=== PATIENT | female | born 1950 | race Caucasian/White ===

== ENCOUNTER → 2020-03-16 | Outpatient (CLI) | payer OTHER ==
--- NOTE | 2020-03-17 18:57 | MAM ---
EXAM DESCRIPTION: 3D Diagnostic, Bilateral (accession [id number]), Breast,Left (accession [id number]): Ultrasound CLINICAL HISTORY: 69 yearsFemale[age] BREAST MASS .. Knot/lump anterior and medial left breast No family history breast cancer. Menarche age 18. Childbirth age 22. Menopause age 52. Bilateral breast implants "about 40 years". No HRT. Lifetime risk of developing breast cancer (Tyrer-Cuzick model)(%): 4.8. COMPARISON: Baseline study at this facility. TECHNIQUE: Bilateral LM, CC, and MLO projection full-field images, Mikel implant displacement positioning, digital tomosynthesis technique. Bilateral 2-D digital full-field images: With Mikel implant displacement. Bilateral full-field CC and MLO projection images without displacement. CAD available for 2-D images.. Transcutaneous scanning of the left breast utilizing soto-scale and Doppler modes. Scanning performed by the certified nurse practitioner ; observation by Dr. Javed. FINDINGS: The breast parenchymal density pattern is: Heterogeneously dense breast tissue, which may obscure small masses. No skin thickening or nipple retraction bilateral breast implants retroglandular. Extensive bilateral capsular calcification, left more than right. Implant material is noted to be protruding from the left implant anterior, inferior, and medial; the largest projection is anterior and inferior. Triangular skin marker placed over palpable lump anteroinferior left breast. This is associated with a collection of implant material apparently from the implant and measuring 2.3 x 1.0 cm. Microcalcifications bilaterally. Less calcification of the medial right implant with protrusion of implant material which is apparently bulging against the medial skin surface on the three-dimensional CC image.. No focal, stellate mass or density, focal asymmetry , and no suspicious microcalcifications bilaterally. Ultrasound: Scanning the palpable regions of the left breast. Focal protrusion of implant material with either calcification or implant material causing posterior shadowing on the left breast at the 6:00 position 2 cm from the nipple. This focal protrusion of material measures 2.3 x 1.6 cm and is not vascular. Corresponding with the mammographic appearance. No dominant solid mass, no distinct cyst, no fluid collection. IMPRESSION: Benign exam. BIRAD CATEGORY: 2 BENIGN FINDINGS. RECOMMENDATIONS: FOLLOW UP: Routine digital bilateral mammographic screening, one year interval from March 2020. Written communication explaining the IMPRESSION and follow-up, will be mailed to the patient and referring health care provider. The FINDINGS and the FOLLOW-UP plan were reviewed in person with the patient after the examination. According to the [employer], yearly mammograms are recommended starting at age 40 and continuing as long as a woman is in good health. Any breast change noted on a breast self-exam should be reported promptly to the patient's healthcare provider. Breast MRI is recommended for women with an approximately 20-25% or greater lifetime risk of breast cancer, including women with a strong family history of breast or ovarian cancer and women who have been treated for Hodgkin's disease. A negative mammographic report should not delay tissue diagnosis in patients with significant clinical history or physical findings. Extremely dense breast tissue limits the sensitivity of digital mammography. Electronically signed by: Fredy Javed MD 03/17/2020 6:55 PM CDT
== END ==
LOC: MAMMO 10:06
PROVIDERS: ATTEND General Practice
DX: N63.23 Unspecified lump in the left breast, lower outer quadrant (principal)
CPT/HCPCS: 76641; 77066; G0279